=== PATIENT | male | born 1995 | race Caucasian/White ===

== ENCOUNTER 2019-10-14 16:01 | Inpatient (IN) | payer OTHER ==
[~2019-10-14] VITALS: Ht 172.7 cm; Wt 56.7 kg
== END 2019-11-19 19:11 | disposition home or self-care (01) | DRG 179 ==
LOC: ER 16:01 → MEDJ 22:54 → SURH 10-15 08:43
PROVIDERS: ADMIT Internal Medicine
PROC: 8E0ZXY6 Isolation (ICD-10-PCS; principal; 2019-10-14)
PROC: BB24ZZZ Computerized Tomography (CT Scan) of Bilateral Lungs (ICD-10-PCS; 2019-10-14)
PROC: 3E0F7GC Introduction of Other Therapeutic Substance into Respiratory Tract, Via Natural or Artificial Opening (ICD-10-PCS; 2019-10-14)
DX: A15.0 Tuberculosis of lung (principal); J18.1 Lobar pneumonia, unspecified organism; J03.80 Acute tonsillitis due to other specified organisms; J06.9 Acute upper respiratory infection, unspecified

== ENCOUNTER 2022-07-06 00:46 | Emergency (ER) | payer OTHER ==
[~2022-07-06] VITALS: Ht 172.7 cm; Wt 63.5 kg
[2022-07-06] MEDS ORDERED: ORASEP SPRAY30 ML MM (05:16)
[2022-07-06] MEDS ORDERED: ZITHROMAX500 MG PO (05:16)
[2022-07-06] MEDS ORDERED: ALBUTEROL2.5 MG/3 M IH (05:16)
== END 2022-07-06 05:18 ==
LOC: ER 00:46
DX: J06.9 Acute upper respiratory infection, unspecified (principal); Z20.822 Contact with and (suspected) exposure to COVID-19